=== PATIENT | female | born 1950 | race Caucasian/White ===

== ENCOUNTER → 2023-09-24 09:52 | Outpatient (REF) | payer OTHER, SELFPAY | LOC: REG 09:52 | PROVIDERS: ATTENDING PHYSICIAN Physician Assistant Medical | DX: M54.59 Other low back pain (principal) | CPT/HCPCS: 72110 ==

== ENCOUNTER → 2023-10-01 08:00 | Outpatient (REF) | payer OTHER, SELFPAY | LOC: WDC 08:00 | PROVIDERS: ATTENDING PHYSICIAN Family Medicine | DX: Z12.31 Encounter for screening mammogram for malignant neoplasm of breast (principal) | CPT/HCPCS: 77063; 77067 ==

== ENCOUNTER → 2023-11-02 07:45 | Outpatient (REF) | payer OTHER, SELFPAY | LOC: RAD 07:45 | PROVIDERS: ATTENDING PHYSICIAN Internal Medicine Gastroenterology; FAMILY PHYSICIAN Family Medicine | DX: R11.0 Nausea (principal) | CPT/HCPCS: 78264; A9541 ==

== ENCOUNTER 2023-12-10 22:32 | Inpatient (IN) | payer OTHER, SELFPAY ==
[2023-12-10 16:00] VITALS: BP 122/105; BMI 23.3
[2023-12-10 16:01] VITALS: BP 122/105
[2023-12-10 16:12] LABS: % Basophils 0.2 % (0-2); % Eosinophils 0.5 % (0-6); % Immature Granulocytes 0.2 % (0-0.5); % Lymphocytes 11.6 % (20.5-51.1); % Monocytes 6.4 % (1.7-9.3); % Neutrophils 81.1 % (42.2-75.2); Absolute Eosinophils 0.1 10^3/uL (0-0.7); Absolute Lymphocytes 1.1 10^3/uL (1.2-3.4); Absolute Monocytes 0.6 10^3/uL (0.1-0.6); Absolute Neutrophils 7.6 10^3/uL (1.4-6.5); Hemoglobin 12.9 g/dL (12.0-16.0); Mean Corp Hgb Conc. 35.8 g/dL (33.0-37.0); Mean Corpuscular Hgb 30.4 pg (27.0-31.0); Mean Corpuscular Volume 84.9 fL (81.0-99.0); Mean Platelet Volume 9.5 fL (7.4-10.4); Nucleated Red Blood Cells % 0 %; Platelet Count 242 10^3/uL (130-400); Red Blood Cell Count 4.24 10^6/uL (4.20-5.40); Red Cell Dist. Width 13.1 % (11.5-14.5); White Blood Cell Count 9.4 10^3/uL (4.8-10.8)
[2023-12-10 16:34] LABS: ALT (SGPT) 17 U/L (0-35); AST (SGOT) 30 U/L (14-36); Albumin 4.3 g/dl (3.5-5.0); Alkaline Phosphatase 89 U/L (38-126); Blood Urea Nitrogen 18 mg/dl (7-17); Carbon Dioxide 26 mmol/L (22-30); Chloride 98 mmol/L (98-107); Estimated Creatinine Clearance 52 ml/min; Glucose 122 mg/dl (70-99); Lipase 61 U/L (23-300); Potassium 3.9 mmol/L (3.5-5.1); Sodium 132 mmol/L (135-145); Total Bilirubin 0.7 mg/dl (0.2-1.3); Total Protein 6.6 g/dl (6.3-8.2); eGFR > 60.00
[2023-12-10 17:00] VITALS: BP 133/89
--- NOTE | 2023-12-10 17:31 | ED.GENMED ---
History of Present Illness
<Vijaya Nolen DO, Resident - Last Filed: 12/10/23 21:49>
General
Chief Complaint: Abdominal Pain
Source: patient and family
Time Seen by Provider: 12/10/23 17:22
History of Present Illness
History of Present Illness:
Pt is a 73 YO F with Hx of GERD and constipation with new onset abdominal pain and projectile vomiting. She reports that she felt SOB around 3 PM, felt epigastric pain, had looser stools and an episode of projectile vomiting. She has no recent sick
contacts or illnesses and reports no headaches, ongoing CP, SOB, numbness, tingling or repeat vomiting. Had a recent barium swallow study showing gastroparesis. She does confirm abdominal tenderness, nausea, epigastric pain/periumbilical pain and
loose stools without blood.
If applicable-neuro sx onset
Onset of symptoms known: Yes
Date of onset of symptoms: 12/10/23
Time of onset of symptoms: 15:00
Past History
<Vijaya Nolen DO, Resident - Last Filed: 12/10/23 21:49>
Past History
ED Past Medical History: Arrthythmia, HTN and Other (IBS)
ED Past Surgical History: None
Social History
Tobacco: Non-smoker
Alcohol: None
Drug: None
Personal:
Living: with family
Review of Systems
<Vijaya Nolen DO, Resident - Last Filed: 12/10/23 21:49>
Review of Systems
Constitutional: Reports no symptoms
EENT: Reports no symptoms
Respiratory: Reports no symptoms
ABD/GI: Reports abdominal pain, nausea, vomiting, diarrhea, pain and other (epigastric pain)
: Reports urgency
Phy Exam
<Vijaya Nolen DO, Resident - Last Filed: 12/10/23 21:49>
General Physical Exam
General Presentation: well appearing and no apparent distress
General age: appears stated age
General Skin: warm and dry
General Habitus: normal
General Mental: alert
General Hydration: appears well hydrated
Cardiovascular Exam
Cardiovascular Exam: regular rate/rhythm, no edema, no gallop, no JVD, no murmur and normal peripheral pulses
Pulmonary Exam
Pulmonary Exam: lungs clear, no respiratory distress, no rales, chest non tender, no crackles, no rhonchi, no stridor, no wheezing, no cough and other (some intermittent short breaths )
Gastrointestinal Exam
Gastrointestinal Exam: normal bowel sounds, soft, non distended and tender (middle upper quadrant tenderness)
Course
Janelllt;Vijaya Nolen DO, Resident - Last Filed: 12/10/23 21:49>
Orders/Labs/Results
Orders:
Orders
12/10/23 Dinner
NPO
Allow oral meds: No
Allow clear liquids: No
NPO with Ice Chips: No
12/10/23 16:05
Complete Blood Count/With Diff Urgent
Comprehensive Metabolic Panel Urgent
Lipase Urgent
12/10/23 18:13
Electrocardiogram (*1) Urgent
Reason for Study: Abdominal Pain
EKG- Treatment ONCE
12/10/23 18:15
Ondansetron Injectable [Zofran] 4 mg IV NOW STA
12/10/23 18:17
0.9% Sodium Chloride 1000 ml [Nss] 1,000 ml IV BOLUS
Pantoprazole [Protonix IV] 40 mg IV NOW STA
12/10/23 18:26
Troponin I Urgent
12/10/23 18:27
CT Abd/pelvis W Iv Cont Urgent
Comment:
Reason For Exam: periumbilical abdominal pain
12/10/23 18:38
0.9% Sodium Chloride 500 ml [Nss] 500 ml IV BOLUS
12/10/23 20:45
0.9% Sodium Chloride 1000 ml [Nss] 1,000 ml IV 100 mls/hr
12/10/23 22:03
Portable Chest Xray [CR Chest Portable - 1 View] Stat
Comment:
Reason For Exam: ng tube placement
Reason Study Needs to be Portable: Unable to Transport
12/10/23 22:10
Admit/Transfer Patient As Directed
Co-Sign Provider:
Level of Care: Inpatient admission
Assign to:: Medical/Surgical
Physician / Group: natalee khanna
Diagnosis: bowel obst
Reason for Hospitalization: bowel obst
Expected length of stay greater than two midnights?: Yes
ELOS- Estimated Length of Stay in days: 4
I certify the patient meets the requirements for IP care: Yes
Code Status As Directed
Resuscitation Status: Full Code
12/10/23 23:07
HYDROmorphone [Dilaudid] 0.25 mg IV Q3HPRN PRN
HYDROmorphone [Dilaudid] 0.5 mg IV Q4HPRN PRN
Ondansetron Injectable [Zofran] 4 mg IV Q6HPRN PRN
12/10/23 23:07
Consult Notification Routine
Specialty to Notify: Surgical
Consult Surgery [SURGICAL CONSULT] Routine
Consulting Provider: Hans Underwood
Was physician already notified: No
Reason for consult: bowel obst
Activity As Directed
Activity Level: As Tolerated
NG Tube [Gastrointestinal Tubes] As Directed
Type: [place] sump
To suction?: Yes
Type of suction: Low intermittent
Irrigate tube?: No
Vital Signs As Directed
Frequency: Per unit guidelines
Ot Eval And Treat Routine
Pt Eval And Treat Routine
Activity Level: As Tolerated
DX Deep Vein Thrombosis Video Routine
12/11/23 06:00
Cardiovascular Evaluation IN AM
Complete Blood Count/With Diff IN AM
Comprehensive Metabolic Panel IN AM
Abdomen Xray - 1 View [CR Abdomen - 1 View] IN AM
Comment:
Reason For Exam: bowel obst
12/11/23 08:00
Pantoprazole [Protonix IV] 40 mg IV DAILY
12/11/23 18:00
Enoxaparin Sodium [Lovenox] 40 mg SC QPM
12/12/23 06:00
Complete Blood Count/With Diff IN AM
Comprehensive Metabolic Panel IN AM
12/13/23 06:00
Complete Blood Count/With Diff IN AM
Comprehensive Metabolic Panel IN AM
Abnormal Lab Results
12/10/23
16:05
Hct 36.0 L %
(37.0-47.0)
Absolute Neuts (auto) 7.6 H 10^3/uL
(1.4-6.5)
Absolute Lymphs (auto) 1.1 L 10^3/uL
(1.2-3.4)
Neutrophils % 81.1 H %
(42.2-75.2)
Lymphocytes % 11.6 L %
(20.5-51.1)
Sodium 132 L mmol/L
(135-145)
BUN 18 H mg/dl
(7-17)
Glucose 122 H mg/dl
(70-99)
12/10/23 16:05
12/10/23 16:05
Vital Signs
Initial and Last Documented VS:
Initial Vital Signs
Temp Pulse Resp BP Pulse Ox
36.7 C 96 20 122/105 99
12/10/23 16:00 12/10/23 16:00 12/10/23 16:00 12/10/23 16:00 12/10/23 16:00
Last Documented Vital Signs
Temp Pulse Resp BP Pulse Ox
37.1 C 112 20 150/90 95
12/10/23 23:33 12/10/23 23:33 12/10/23 23:33 12/11/23 00:06 12/11/23 00:07
<Danilo Pak MD - Last Filed: 12/11/23 01:23>
Orders/Labs/Results
Orders:
Orders
12/10/23 Dinner
NPO
Allow oral meds: No
Allow clear liquids: No
NPO with Ice Chips: No
12/10/23 16:05
Complete Blood Count/With Diff Urgent
Comprehensive Metabolic Panel Urgent
Lipase Urgent
12/10/23 18:13
Electrocardiogram (*1) Urgent
Reason for Study: Abdominal Pain
EKG- Treatment ONCE
12/10/23 18:15
Ondansetron Injectable [Zofran] 4 mg IV NOW STA
12/10/23 18:17
0.9% Sodium Chloride 1000 ml [Nss] 1,000 ml IV BOLUS
Pantoprazole [Protonix IV] 40 mg IV NOW STA
12/10/23 18:26
Troponin I Urgent
12/10/23 18:27
CT Abd/pelvis W Iv Cont Urgent
Comment:
Reason For Exam: periumbilical abdominal pain
12/10/23 18:38
0.9% Sodium Chloride 500 ml [Nss] 500 ml IV BOLUS
12/10/23 20:45
0.9% Sodium Chloride 1000 ml [Nss] 1,000 ml IV 100 mls/hr
12/10/23 22:03
Portable Chest Xray [CR Chest Portable - 1 View] Stat
Comment:
Reason For Exam: ng tube placement
Reason Study Needs to be Portable: Unable to Transport
12/10/23 22:10
Admit/Transfer Patient As Directed
Co-Sign Provider:
Level of Care: Inpatient admission
Assign to:: Medical/Surgical
Physician / Group: natalee khanna
Diagnosis: bowel obst
Reason for Hospitalization: bowel obst
Expected length of stay greater than two midnights?: Yes
ELOS- Estimated Length of Stay in days: 4
I certify the patient meets the requirements for IP care: Yes
Code Status As Directed
Resuscitation Status: Full Code
12/10/23 23:07
HYDROmorphone [Dilaudid] 0.25 mg IV Q3HPRN PRN
HYDROmorphone [Dilaudid] 0.5 mg IV Q4HPRN PRN
Ondansetron Injectable [Zofran] 4 mg IV Q6HPRN PRN
12/10/23 23:07
Consult Notification Routine
Specialty to Notify: Surgical
Consult Surgery [SURGICAL CONSULT] Routine
Consulting Provider: Hans Underwood
Was physician already notified: No
Reason for consult: bowel obst
Activity As Directed
Activity Level: As Tolerated
NG Tube [Gastrointestinal Tubes] As Directed
Type: [place] sump
To suction?: Yes
Type of suction: Low intermittent
Irrigate tube?: No
Vital Signs As Directed
Frequency: Per unit guidelines
Ot Eval And Treat Routine
Pt Eval And Treat Routine
Activity Level: As Tolerated
DX Deep Vein Thrombosis Video Routine
12/11/23 06:00
Cardiovascular Evaluation IN AM
Complete Blood Count/With Diff IN AM
Comprehensive Metabolic Panel IN AM
Abdomen Xray - 1 View [CR Abdomen - 1 View] IN AM
Comment:
Reason For Exam: bowel obst
12/11/23 08:00
Pantoprazole [Protonix IV] 40 mg IV DAILY
12/11/23 18:00
Enoxaparin Sodium [Lovenox] 40 mg SC QPM
12/12/23 06:00
Complete Blood Count/With Diff IN AM
Comprehensive Metabolic Panel IN AM
12/13/23 06:00
Complete Blood Count/With Diff IN AM
Comprehensive Metabolic Panel IN AM
Abnormal Lab Results
12/10/23
16:05
Hct 36.0 L %
(37.0-47.0)
Absolute Neuts (auto) 7.6 H 10^3/uL
(1.4-6.5)
Absolute Lymphs (auto) 1.1 L 10^3/uL
(1.2-3.4)
Neutrophils % 81.1 H %
(42.2-75.2)
Lymphocytes % 11.6 L %
(20.5-51.1)
Sodium 132 L mmol/L
(135-145)
BUN 18 H mg/dl
(7-17)
Glucose 122 H mg/dl
(70-99)
12/10/23 16:05
12/10/23 16:05
Vital Signs
Initial and Last Documented VS:
Initial Vital Signs
Temp Pulse Resp BP Pulse Ox
36.7 C 96 20 122/105 99
12/10/23 16:00 12/10/23 16:00 12/10/23 16:00 12/10/23 16:00 12/10/23 16:00
Last Documented Vital Signs
Temp Pulse Resp BP Pulse Ox
37.1 C 112 20 150/90 95
12/10/23 23:33 12/10/23 23:33 12/10/23 23:33 12/11/23 00:06 12/11/23 00:07
<Vijaya Nolen DO, Resident - Last Filed: 12/10/23 21:49>
MDM/Problems Addressed
Differential Diagnosis Includes:
gastroparesis, small bowel obstruction, ileus
MDM/Problems Addressed:
Pt is a 73 YO F with Hx of GERD and constipation with new onset abdominal pain and projectile vomiting. She is stable. CT AP ordered for periumbilical pain. EKG normal. Zofran, IVF, and Protonix given for symptom management. CT AP showed moderate
developing small bowel obstruction vs ileus. She is currently stable but nauseous. Plan to admit to hospital for nasogastric decompression.
Chronic conditions affecting care:
Gastroparesis
Acute Exacerbation and/or Progression of Chronic Illness:
Gastroparesis
<Vijaya Nolen DO, Resident - Last Filed: 12/10/23 21:49>
*Radiology
Radiology exam reviewed: radiology read reviewed (CT AP showed developing moderate small bowel obstruction vs ileus)
*Pulse Oximetry
Patient hypoxic: no
*EKG
Interpreted by ED Provider?: Yes
EKG Intrepretation Date: 12/10/23
Interpretation: normal
Comparison EKG: no changes
Heart Rate: 97
Rate: normal
Rhythm: sinus
[place]: normal axis
Interval: normal interval
QRS Pattern: normal QRS
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 No new ischemia)
*Carpet Cutter Interpretation
Rate: tachycardiac
Interpretation: abnormal
Heart Rate: 112
Rhythm: sinus
*Critical Care Note
Total Time (30-74mins, 75-104mins- exclusive of procedures): Not Applicable
<Vijaya Nolen DO, Resident - Last Filed: 12/10/23 21:49>
Patient Management
Social determinants of health affecting care: Living situation and Strong social support
<Vijaya Nolen DO, Resident - Last Filed: 12/10/23 21:49>
Update Note
Update Note:
Patient vomited 1x in ED. Vomit had food particles and was an orange-y color.
ED Attending Note
<Vijaya Nolen DO, Resident - Last Filed: 12/10/23 21:49>
-
Portions of this chart may have been created with voice recognition software.� Occasional wrong word or��sound alike� substitutions may have occurred due to the inherent limitations of voice recognition software.
<Danilo Pak MD - Last Filed: 12/11/23 01:23>
ED Attending Note
Patient seen and examined by attending physician: Yes
I performed a history and physical exam of patient and discussed management with resident, I reviewed resident's note and agree with documented findings and plan of care.: Yes
ED Attending Note:
I have seen and evaluated the patient with a fiyf-st-ltya encounter. I have spoken to the resident and involved in the medical history, the physical exam, medical decision making.
Evaluation and management service: agree unless noted differently below.
Results interpretation: agree unless noted differently below.
Focused HPI: 73-year-old female with a past medical history of hypertension, atrial fibrillation who presents to the emergency room for evaluation of abdominal pain with nausea and vomiting. Patient reports that it started earlier this afternoon
and has been constant and worsening throughout the day. She reports nonbloody emesis. She denies any diarrhea in fact is chronically constipated. No fevers or chills. She denies any chest pain or shortness of breath. She has a prior history of
a tubal ligation and polyp resection in the uterus but no other significant intra-abdominal procedures. She does notably have a history of chronic nausea and vomiting and had a recent gastric emptying study that showed signs concerning for
gastroparesis.
Physical exam: Awake and alert, holding emesis bag. Vital signs significant for hypertension. Mucous membranes are somewhat dry. Her abdomen is soft, diffusely tender worse in the epigastric to periumbilical region. No CVA tenderness. No
cardiac rubs gallops or murmurs. Lungs clear to auscultation bilaterally.
Medical Decision Makin-year-old female presents for abdominal pain with nausea and vomiting for the past few hours. Exam as above. Will send labs including a CBC and a CMP, lipase. Will check EKG and troponin in an abundance of caution
although low suspicion that this is anginal equivalent. Will check CT abdomen pelvis. Reassess after the above.
CT abdomen pelvis shows signs concerning for small bowel obstruction. She does have distended stomach. Continues to have nausea and a few episodes of vomiting. Will place nasogastric tube. IV fluids in progress. Will admit to the hospitalist
for continued treatment of small bowel obstruction.
Discharge Plan
Departure
Patient Disposition: Admit
Date of Disposition: 12/10/23
Time of Disposition: 20:57
Admit to: Telemetry
Presentation/result/management discussed w/ accepting MD/DO: Hospitalist
Patient with high blood pressure during this ER visit?: No
Condition: Fair
Discharge Problem:
Small bowel obstruction
Interventions
Interventions:
*Risk Screen - Suicide Last Done: 12/10/23 23:46
*General Assessment Last Done: 12/10/23 16:04
*Neglect/Abuse Screening Last Done: 12/10/23 16:04
ED- Fall Risk Assessment Last Done: 12/10/23 22:59
*ED COVID-19 Vaccine History Last Done: 12/10/23 16:04
*Nursing Disposition Last Done: 12/10/23 22:59
OO-Rdpjvs-Qeljkqweop Assessment Last Done: 12/10/23 16:19
Discharge Date and Time
Discharge Date/Time: 12/10/23 23:00
[2023-12-10 18:09] VITALS: BP 122/73
[2023-12-10] MEDS: ZOFRAN 4 MG IV (18:35)
[2023-12-10] MEDS: PROTONIX IV 40 MG IV (18:35)
[2023-12-10] MEDS: NSS 500 IV (18:38)
[2023-12-10 18:58] LABS: Troponin I 0.016 ng/ml
[2023-12-10 19:00] VITALS: BP 111/88
--- NOTE | 2023-12-10 21:45 | HPS.HSE ---
Addendum entered and electronically signed by Doni Vasquez DO 12/10/23 23:51:
Patient seen and examined independently. Agree with findings and plan as set forth by PJ Griffiths.
Patient is a 73y F with PMH significant for GERD / hiatal hernia, hypertension and recently diagnosed mild gastroparesis who presents to ED complaining of abdominal discomfort and N/V. Patient states that she has had intermittent issues with abd
pain and N/V for the past several months. Patient reported pain near the umbilicus today associated with several episodes of bilious N/V. On evaluation in the ED, CT scan shows dilated gastric body and small bowel c/w obstruction or ileus.
Patient states that she has had normal bowel movements recently.
Ass:
SBO v Ileus
Mild Gastroparesis
GERD / Hiatal Hernia
Large Gallstone (chronic)
Benign Hypertension
Osteoporosis
Plan:
Admit for further evaluation and treatment.
NG placed in the ED for decompression with clinical improvement appreciated.
Follow for clinical changes.
Surgery evaluation for additional recommendations.
Large gallstone appreciated - patient notes that this is a known finding.
Supportive care with pain control, antiemetics, etc.
Original Note:
Family Physician
-
Family Physician: Rolando Howell
Chief Complaint
-
Abdominal pain with nausea and vomiting
History of Present Illness
73-year-old female from home by EMS complaining of nausea, vomiting with abdominal pain to the left and right of her umbilicus. She reports she vomited a large amount of her food. She had a turkey sandwich with tomato for lunch today. Also
vomited once in the ER. She states she has had abdominal pain for years with known history of gallstone. She had a recent gastric emptying study for which she was told she failed. She has an upcoming appointment with Dr. Gregorio February 25 at
[facility] for gastroparesis evaluation. She denies fever, chills, chest pain, palpitations, shortness breath, cough, diarrhea, urinary symptoms. She does report issues with constipation did have a normal bowel movement yesterday she states. She has
been taking MiraLAX, senna and align daily with last dose yesterday 12/09/2023. Other past medical history includes HTN, PVCs, history of old Linq device, GERD, osteoporosis, hyperlipidemia, hiatal hernia, right eye wet macular degeneration, vitamin
D deficiency, gallstones.
Medical History
Past Medical History
Past Medical History: Reports Other
Additional Past Medical History:
GERD
Possible gastroparesis on recent gastric emptying study 11/02/2023
Chronic hiatal hernia
HTN with PVCs
osteoporosis
hyperlipidemia
right eye wet macular degeneration
vitamin D deficiency
gallstones
Past Surgical History: Reports Other
Additional Past Surgical History:
Tubal ligation
Tonsillectomy
Social History
Tobacco: Non-smoker
Alcohol: None
Drug: None
Personal:
Living: With Family
Employment: Retired
Family History
Family History: Other (Father ruptured aneurysm abdomen mother post hip fracture)
Allergies / Home Medications
Allergies reflects when Allergies were last updated in [facility].
Home Medications with original date entered in [facility]
Allergy/Medication List:
Allergies
Allergy/AdvReac Type Severity Reaction Status Date / Time
apixaban [From Eliquis] Allergy Unknown Anaphylaxis Verified 09/12/22 13:14
cefdinir Allergy Unknown Verified 09/12/22 13:14
cephalexin Allergy Vomiting Verified 09/12/22 13:14
clarithromycin Allergy twin Verified 09/12/22 13:14
sister had
anaphylaxis
dabigatran etexilate Allergy Hives and Verified 09/12/22 13:14
[From Pradaxa] itching
doxycycline Allergy Unknown Verified 09/12/22 13:14
erythromycin base Allergy twin Verified 09/12/22 13:14
sister had
anaphyaxis
Penicillins Allergy Unknown Verified 09/12/22 13:14
rivaroxaban [From Xarelto] Allergy Hives and Verified 09/12/22 13:14
itching
Sulfa (Sulfonamide Allergy Vomiting Verified 09/12/22 13:14
Antibiotics)
Home Medications
ycarfsog-iwkn-zris 8 mg-folic 400 mcg-K 50 mcg-lutein 300 mcg tablet (Multivitamin Women 50 Plus) 1 ea PO DAILY 02/23/19
alendronate 70 mg tablet 70 mg PO WE 03/14/19
metoprolol succinate 50 mg tablet,extended release 24 hr 50 mg PO QPM 03/14/19
vit C 250 mg-vit E 90 mg-zinc 40 mg-copper 1 uz-yqwwkv-pjjjmk capsule (PreserVision AREDS-2) 1 ea PO BID 03/14/19
calcium carbonate 500 mg-vitamin D3 3.125 mcg (125 unit) tablet 1 ea PO BID 09/09/21
Brandy Extra Strength 1 tab PO DAILYPRN PRN probiotic 12/10/23
Cimerli 1 dose intraocular .Q7WEEK 12/10/23
aspirin 81 mg tablet,delayed release 81 mg PO DAILY 12/10/23
cholecalciferol (vitamin D3) 50 mcg (2,000 unit) tablet 50 mcg PO DAILY 12/10/23
famotidine 40 mg tablet 40 mg PO QPM 12/10/23
metoprolol succinate 25 mg tablet,extended release 24 hr 25 mg PO QPM 12/10/23
omega 6-qmi-ssp-fish oil 1,000 mg (120 mg-180 mg) capsule (Fish Oil) 1 cap PO BID 12/10/23
omeprazole 40 mg capsule,delayed release 40 mg PO DAILY 12/10/23
polyethylene glycol 3350 17 gram oral powder packet (Miralax) 8.5 g PO DAILYPRN PRN constipation 12/10/23
sennosides 8.6 mg tablet (senna) 8.6 mg PO DAILYPRN PRN constipation 12/10/23
Review of Systems
-
History Source: Patient and Family ( at bedside)
A 12 point ROS was completed and negative except as noted: Yes
Constitutional: Denies Fever or Fatigue
EENT: Denies Sore Throat or Runny Nose
Respiratory: Denies Cough or Trouble Breathing
Cardiac: Denies Chest Pain, Diaphoresis, Palpitations or Syncope
Abdomen/GI: Reports Abdominal Pain (To left and right of umbilicus), Nausea and Vomiting; Denies Diarrhea or Constipated
: Denies Dysuria, Frequency, Flank Pain, Incontinence, Difficulty Voiding or Urgency
Musculoskeletal: Denies Joint Pain or Edema
Skin: Denies Itching or Rash
Neurological: Denies Dizzy, Headache or Weakness
Endocrine: Reports No Symptoms
Hematologic/Lymphatic: Reports No Symptoms
Psych: Reports Calm
Physical Exam
Vital Signs
Vital Signs
Temp Pulse Resp BP Pulse Ox
98.1 F 105 21 111/88 96
12/10/23 16:00 12/10/23 20:30 12/10/23 20:30 12/10/23 19:00 12/10/23 20:30
Physical Exam
General: Conversant; No Fever or Chills
HEENT: NormoCephalic, Anicteric, Moist mucous membranes, PERRLA, [place] Conjunctivae and No Ptosis
Respiratory: Clear; No Wheezes, Rales or Rhonchi
Cardiac: S1/S2 and Regular Rhythm; No Murmur, Rub, Gallop or Peripheral Edema
Breast: Deferred by me
GI: Soft, Non Distended, Normal Bowel Sounds and Tender (To left and right of umbilicus)
Rectal: Deferred by Provider
Genito-urinary: Deferred by me
Musculoskeletal: No Clubbing, No Cyanosis and No Edema
Skin: Warm and Dry; No Rash or Jaundice
Neuro: AO x 3, No Motor Deficits, Nonfocal/grossly intact, Cranial Nerves Intact and No Sensory Deficits; No DTR's Intact & Symmetrical, Slurred Speech, Facial Droop or Tremors
Psych: Calm
Laboratory Results
-
12/10/23 16:05
12/10/23 16:05
Laboratory Results
Total Bilirubin 0.7 mg/dl (0.2-1.3) 12/10/23 16:05
AST 30 U/L (14-36) 12/10/23 16:05
ALT 17 U/L (0-35) 12/10/23 16:05
Alkaline Phosphatase 89 U/L (38-126) 12/10/23 16:05
Troponin I 0.016 ng/ml 12/10/23 18:26
Lipase 61 U/L (23-300) 12/10/23 16:05
Impression/Plan
-
Impression/plan:
Admit to MedSurg
#Abdominal pain with nausea vomiting secondary to small bowel obstruction
-N.p.o.
-Consult surgery
-IV NSS
-IV Zofran as needed
-IV PPI
-NG tube to low suction
CT abdomen pelvis with IV contrast:
1. Moderate developing small bowel obstruction versus small bowel ileus
2. Single large gallstone
3. Mild diverticulosis
4. Too small to characterize hypodense hepatic lesions likely small cyst or hemangiomas
EKG: NSR 97 bpm stable T wave inversions lead III aVF from prior 2019 appearance of lead artifact in anterior leads
#Recent borderline gastroparesis
Gastric emptying study completed on 11/02/2023 with borderline evidence of gastroparesis/delayed initial gastric emptying at 141 minutes with normal time being 110 minutes or less
-Patient has appointment [address] Solomon Gregorio motility specialist at [facility]
#GERD
-Will give IV PPI in place of p.o.
#Known history of gallstones
#Hiatal hernia Hx
#History of EGD 09/12/2022:small hiatal hernia dilated to 20 mm with a TTS balloon
Entire esophagus normal
#HTN with PVCs
#History of old Linq device
Hold metoprolol succinate 75 mg every afternoon
#Osteoporosis
Hold alendronate 70 mg on Wednesdays
Hyperlipidemia
-Hold fish oil
Right eye wet macular degeneration
-Patient gets Cimerli injection to right eye every 7 weeks last injection was 11/09/2023
Vitamin D deficiency
-Hold vitamin D supplementation
DVT prophylaxis
Subcu Lovenox
Full code
[2023-12-10] MEDS: NSS 1000 IV (22:16)
--- NOTE | 2023-12-10 23:05 | PTCARENOTE ---
Pt arrived to 2S via stretcher from ED. Pt was able to ambulate to bed. VSS. NG in L nare connected to low intermittent suction. IVF infusing at 100 ml/hr. Full head to toe assessment complete. Pt has no complaints at this time. Bed in lowest
position and locked. Call chávez within reach.
[2023-12-10 23:33] VITALS: BP 154/116; BMI 20.9
[2023-12-10 23:55] VITALS: BMI 20.9
[2023-12-11 00:06] VITALS: BP 150/90
[2023-12-11] MEDS: DILAUDID 0.5 MG IV (02:50)
[2023-12-11] MEDS: LOPRESSOR 5 MG IV ×3 (02:53→16:46)
[2023-12-11 03:02] VITALS: BP 163/85
[2023-12-11] MEDS: ZOFRAN 4 MG IV ×2 (03:06→12:07)
[2023-12-11 05:50] LABS: % Basophils 0.3 % (0-2); % Eosinophils 0.4 % (0-6); % Immature Granulocytes 0.4 % (0-0.5); % Monocytes 8.2 % (1.7-9.3); % Neutrophils 82.7 % (42.2-75.2); Absolute Lymphocytes 0.9 10^3/uL (1.2-3.4); Absolute Monocytes 0.9 10^3/uL (0.1-0.6); Absolute Neutrophils 8.7 10^3/uL (1.4-6.5); Hematocrit 36.5 % (37.0-47.0); Hemoglobin 12.8 g/dL (12.0-16.0); Mean Corp Hgb Conc. 35.1 g/dL (33.0-37.0); Mean Corpuscular Hgb 29.9 pg (27.0-31.0); Mean Corpuscular Volume 85.3 fL (81.0-99.0); Mean Platelet Volume 9.9 fL (7.4-10.4); Nucleated Red Blood Cells % 0 %; Platelet Count 262 10^3/uL (130-400); Red Blood Cell Count 4.28 10^6/uL (4.20-5.40); Red Cell Dist. Width 13.3 % (11.5-14.5); White Blood Cell Count 10.6 10^3/uL (4.8-10.8)
[2023-12-11] MEDS: LOPRESSOR IV (05:55)
[2023-12-11 06:13] LABS: ALT (SGPT) 16 U/L (0-35); AST (SGOT) 29 U/L (14-36); Alkaline Phosphatase 78 U/L (38-126); Blood Urea Nitrogen 14 mg/dl (7-17); Calcium 9.8 mg/dl (8.4-10.2); Carbon Dioxide 21 mmol/L (22-30); Chloride 103 mmol/L (98-107); Estimated Creatinine Clearance 55 ml/min; Glucose 119 mg/dl (70-99); HDL Cholesterol 57 mg/dl; LDL Cholesterol, Calculated 101 mg/dl; Potassium 3.9 mmol/L (3.5-5.1); Sodium 136 mmol/L (135-145); Total Cholesterol 169 mg/dl (50-199); Total Protein 6.3 g/dl (6.3-8.2); Triglyceride 56 mg/dl (10-149); Very Low Density Lipoprotein 11 mg/dl (0-30); eGFR > 60.00
[2023-12-11 07:01] LABS: Hepatitis C Antibody Negative (Negative)
[2023-12-11 07:20] VITALS: BP 155/89
--- NOTE | 2023-12-11 07:59 | PTCARENOTE ---
consult sent to Dr. Underwood
--- NOTE | 2023-12-11 09:22 | W.PN.GS2 ---
Addendum entered and electronically signed by Hans Underwood MD 12/11/23 15:39:
Note should be deleted. Please see separate consultation note for details.
Original Note:
Today's Communication / Plan
-
*
Assessment / Plan
-
ASSESSMENT:
73 yo Female pt with relevant SHx of previous Cyst removal and fallopian tube ligation +30 years ago and a PMH of gastroparesis presenting to the ED with possible SBO VS Ileus.
PLAN:
NPO
Continue NG-Tube
Follow-through Contrast ABD Study
Subjective Data
-
Date of Service: December 11, 2023
Pt seen and examine this morning with attending physician.
No acute O/N events
Feeling better/No complains this morning
Reports improvement of previous abdominal pain and distention
Denies any Nausea or vomiting
Passing flatus/No abdominal movement at this time
Objective Data
-
Intake and Output
12/10/23 12/11/23 12/12/23
06:59 06:59 06:59
Intake Total 800 / 800
Output Total 200 / 200
Balance 600 / 600
Intake:
IV fluids (Total) 800 / 800
Output:
Gastrointestinal tube output ( 200 / 200
Total)
[place] Sump 200 / 200
Other:
Number of approximated MODERATE 1
amounts of urine
Vital Signs
Temp Pulse Resp BP Pulse Ox
36.9 C 87 17 155/89 99
12/11/23 07:20 12/11/23 07:20 12/11/23 07:20 12/11/23 07:20 12/11/23 07:20
Lab Results
12/11/23 04:49
12/11/23 04:49
Calcium 9.8 mg/dl (8.4-10.2) 12/11/23 04:49
Total Bilirubin 1.0 mg/dl (0.2-1.3) 12/11/23 04:49
AST 29 U/L (14-36) 12/11/23 04:49
ALT 16 U/L (0-35) 12/11/23 04:49
Alkaline Phosphatase 78 U/L (38-126) 12/11/23 04:49
Total Protein 6.3 g/dl (6.3-8.2) 12/11/23 04:49
Albumin 4.0 g/dl (3.5-5.0) 12/11/23 04:49
Physical Exam
-
VITALS: Stable
PE:
NAD / AAOx3
ABDOMINAL: Soft, non-distended, No TTP, rigidity, rebound or guarding
NG-Tube in Place - Draining Brownish fluid /~ 100cc this morning
[2023-12-11 09:39] VITALS: BP 157/97; PULSE 91
--- NOTE | 2023-12-11 09:48 | PTOTSP ---
pt currently demonstrates ability to complete simple ADLs, functional transfers, ambulation with no assistance. no acute OT needs identified at this time, will sign off.
[2023-12-11] MEDS: NSS 1000 IV ×2 (09:49→17:41)
[2023-12-11] MEDS: NSS (PRESERVATIVE FREE) 10 ML IV (09:52)
[2023-12-11] MEDS: PROTONIX IV 40 MG IV (09:52)
--- NOTE | 2023-12-11 10:48 | W.PN.HOSP.TC ---
Today's Communication/Plan
-
see bold
Assessment / Plan
Assessment / Plan
Gen: NAD, AAOx3.
Eyes: EOMI, PERRLA, no scleral icterus.
Neck: supple.
CV: RRR, +S1/S2, no m/r/g.
Resp: CTAB, no rales, wheezes, or rhonchi.
Abd: hypoactive BS, soft, NT to light palpation, ND
Skin: No rashes.
Neuro: CN 2-12 intact, non-focal.
Psych: Normal mood and affect.
CT A/P 12/10/23: Findings suggesting moderate developing small bowel obstruction versus small bowel ileus. Too small to characterize hypodense hepatic lesions likely small cysts or hemangiomas. Single large gallstone. Mild diverticulosis.
Abd Xray 12/11/23: Paucity of intestinal bowel gas. Bowel gas pattern nonobstructive.
Possible, developing SBO:
-surgery following
-NGT in place to suction
-NPO/IVFs
-note, h/o gastroparesis
Other problems:
GERD: cont PPI
h/o gallstones
h/o hiatal hernia
Essential HTN: IV BB PRN
Multiple family members updated at bedside.
FULL/Lovenox
Anticipated Discharge: > 48 hours
Subjective/Interval History
-
Date of Service: December 11, 2023
Nausea now. BM yesterday. No flatus or BM today.
Objective Data
-
Labs:
Laboratory Results
12/11/23
04:49
WBC 10.6
Hgb 12.8
Hct 36.5 L
Plt Count 262
Sodium 136
Potassium 3.9
Chloride 103
Carbon Dioxide 21 L
BUN 14
Creatinine 0.7
Glucose 119 H
Calcium 9.8
Total Bilirubin 1.0
AST 29
ALT 16
Alkaline Phosphatase 78
Vital Signs:
Vital Signs
Temp Pulse Resp BP Pulse Ox
98.5 F 87 17 155/89 96
12/11/23 07:20 12/11/23 07:20 12/11/23 07:20 12/11/23 07:20 12/11/23 09:00
I&O
12/10/23 12/11/23 12/12/23
06:59 06:59 06:59
Intake Total 800 / 800
Output Total 200 / 200
Balance 600 / 600
--- NOTE | 2023-12-11 10:58 | CON.GS ---
Addendum entered and electronically signed by Hans Underwood MD 12/11/23 15:43:
Patient seen and examined.
Ms. Diaz is a 73 yo female with a h/o small hiatal hernia s/p Botox injection in 2021 & 2022, tubal ligation and recently diagnosed mild gastroparesis following extensive GI work up as an outpatient for chronic dyspepsia with constipation who
presents with worsening abdominal pain over the past 2 months with nausea and vomiting beginning yesterday. She reports that she was passing daily BM's up until yesterday. She has had no passage of flatus for approx 24 hours. An NGT was placed in
the ED with significant relief of symptoms.
Gen: NAD
HEENT: gastric/brown contents
Abd: soft, NT, mildly distended (mild), non-peritoneal
Patient is a 73 yo F with a h/o small hiatal hernia and chronic GERD with recent dx of mild gastroparesis presenting with intermittent abdominal pain over the last 2 months which worsened yesterday with onset of nausea and vomiting. CT imaging w/o
PO contrast with concern for ileus vs SBO (adhesive) without evidence of bowel threat or compromise. Symptomatic relief with NGT placement. AFVSS.
Plan:
Keep NPO with NGT to LIWS
IVF while NPO
May need PO contrast study if does not continue to improve with decompression
No plans for emergent surgery at this time
Original Note:
Consultation
-
Date/Time Consultation Requested: 12/10/23 0804
Requesting Provider: [place]
Reason for Consultation: bowel obst
Medical History
-
Chief Complaint: Abdominal pain
History of Present Illness:
Ms Diaz is a 73 yo female with a h/o small hiatal hernia s/p botox injection in 2021 & 2022, tubal ligation and recently diagnosed mild gastroparesis following extensive GI work up as an outpatient for chronic dyspepsia with constipation who
presents with worsening abdominal pain over the past 2 months with nausea and vomiting beginning yesterday. She reports that she was passing daily BM's up until yesterday. She has had no passage of flatus for approx 24 hours. An NGT was placed in
the ED with significant relief of symptoms.
Past Medical History
Past Medical History: GERD, HTN and Other (?gastroparesis, hiatal hernia, right eye wet macular degeneration, vitamin D deficiency, lg gallstone)
Past Surgical History: Gynecological (tubal ligation) and Tonsilectomy
Social History
Tobacco: Non-Smoker
Alcohol: None
Personal:
Living: With Family
Family History
Family History: Reviewed & Not Pertinent
Allergies / Home Medications
Allergy/AdvReac Type Severity Reaction Status Date / Time
apixaban [From Eliquis] Allergy Unknown Anaphylaxis Verified 09/12/22 13:14
cefdinir Allergy Unknown Verified 09/12/22 13:14
cephalexin Allergy Vomiting Verified 09/12/22 13:14
clarithromycin Allergy twin Verified 09/12/22 13:14
sister had
anaphylaxis
dabigatran etexilate Allergy Hives and Verified 09/12/22 13:14
[From Pradaxa] itching
doxycycline Allergy Unknown Verified 09/12/22 13:14
erythromycin base Allergy twin Verified 09/12/22 13:14
sister had
anaphyaxis
Penicillins Allergy Unknown Verified 09/12/22 13:14
rivaroxaban [From Xarelto] Allergy Hives and Verified 09/12/22 13:14
itching
Sulfa (Sulfonamide Allergy Vomiting Verified 09/12/22 13:14
Antibiotics)
�Medication �Instructions �Recorded �Confirmed �Type
[id number] 8 mg-folic 400 1 ea PO DAILY Supplement 02/23/19 12/10/23 History
mcg-K 50 mcg-lutein 300 mcg tablet
(Multivitamin Women 50 Plus)
alendronate 70 mg tablet 70 mg PO WE 03/14/19 12/10/23 History
metoprolol succinate 50 mg 50 mg PO QPM Heart 03/14/19 12/10/23 History
tablet,extended release 24 hr Disease/Condition
vit C 250 mg-vit E 90 mg-zinc 40 1 ea PO BID Supplement 03/14/19 12/10/23 History
mg-copper 1 [id number]
capsule (PreserVision AREDS-2)
calcium carbonate 500 mg-vitamin 1 ea PO BID Supplement 09/09/21 12/10/23 History
D3 3.125 mcg (125 unit) tablet
[place] Extra Strength 1 tab PO DAILYPRN PRN probiotic 12/10/23 12/10/23 History
Cimerli 1 dose intraocular .Q7WEEK 12/10/23 12/10/23 History
aspirin 81 mg tablet,delayed 81 mg PO DAILY Blood Clot 12/10/23 12/10/23 History
release Prevention/Tx
cholecalciferol (vitamin D3) 50 50 mcg PO DAILY Supplement 12/10/23 12/10/23 History
mcg (2,000 unit) tablet
famotidine 40 mg tablet 40 mg PO QPM Gastrointestinal Issue 12/10/23 12/10/23 History
metoprolol succinate 25 mg 25 mg PO QPM 12/10/23 12/10/23 History
tablet,extended release 24 hr
omega 3-kyd-jht-fish oil 1,000 mg 1 cap PO BID Supplement 12/10/23 12/10/23 History
(120 mg-180 mg) capsule (Fish Oil)
omeprazole 40 mg capsule,delayed 40 mg PO DAILY Gastrointestinal 12/10/23 12/10/23 History
release Issue
polyethylene glycol 3350 17 gram 8.5 g PO DAILYPRN PRN constipation 12/10/23 12/10/23 History
oral powder packet (Miralax)
sennosides 8.6 mg tablet (senna) 8.6 mg PO DAILYPRN PRN constipation 12/10/23 12/10/23 History
Review of Systems
-
History Source: Patient and Family
All other systems: Negative unless noted
A 10 point review of systems was completed, and was negative except as per HPI.
Physical Exam
Vital Signs
Temp Pulse Resp BP Pulse Ox
98.5 F 87 17 155/89 96
12/11/23 07:20 12/11/23 07:20 12/11/23 07:20 12/11/23 07:20 12/11/23 09:00
12/10/23 12/11/23 12/12/23
06:59 06:59 06:59
Actual Weight 50.15 kg
Body Mass Index (BMI) 20.9
Lab Results
12/11/23 04:49
12/11/23 04:49
WBC 10.6 10^3/uL (4.8-10.8) 12/11/23 04:49
Hgb 12.8 g/dL (12.0-16.0) 12/11/23 04:49
Hct 36.5 % (37.0-47.0) L 12/11/23 04:49
Plt Count 262 10^3/uL (130-400) 12/11/23 04:49
Abs Immat Gran (auto) 0.0 10^3/uL (0-0.05) 12/11/23 04:49
Neutrophils % 82.7 % (42.2-75.2) H 12/11/23 04:49
Physical Exam
General: Well Developed and Well Nourished
HEENT: Moist Mucous Membranes
Respiratory: Non Labored Respirations
GI: Soft, Non Tender, Distended (mild) and Other (NGT with gastric/brown contents)
Skin: Warm
Neuro: Awake, Alert and AO x 3
Psych: Calm
Data Reviewed
-
CT Scan: Image Personally Visualized and interpreted, Report Reviewed by me, Discussed with Physician, Discussed with Patient and Discussed with Family
Labs: Labs Reviewed by me, Discussed with Physician, Discussed with Patient and Discussed with Family
Old Records: Reviewed
Assessment / Plan
-
Assessment:
73 yo female with a h/o small hiatal hernia and chronic GERD with recent dx of mild gastroparesis presenting with intermittent abdominal pain over the last 2 months which worsened yesterday with onset of nausea and vomiting. CT imaging w/o PO
contrast with concern for ileus vs SBO (adhesive) without evidence of bowel threat or compromise. Symptomatic relief with NGT placement. AFVSS.
Plan:
Keep NPO with NGT to LIWS
IVF while NPO
May need PO contrast study if does not continue to improve with decompression
No plans for emergent surgery at this time
[2023-12-11 11:35] VITALS: BP 160/91
[2023-12-11] MEDS: OFIRMEV 100 IV (16:39)
[2023-12-11] MEDS: COMPAZINE 10 MG IV (16:41)
--- NOTE | 2023-12-11 19:51 | PTCARENOTE ---
pt refused Lovenox c/c she stated when she took a trip to [place] a couple yrs ago and the doctor put her on either Xarelto /Eliquis she had a reaction to it so they placed her on either Xarelto /Eliquis and she a reaction to that. So she refuses
blood thinners. 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
[2023-12-11] MEDS: TORADOL 15 MG IV (20:28)
[2023-12-11 23:24] VITALS: BP 147/82
[2023-12-12] VITALS (7 sets, daily range): BP systolic 143–176; BP diastolic 76–103
[2023-12-12] MEDS: LOPRESSOR 5 MG IV ×5 (00:10→23:03)
[2023-12-12] MEDS: NSS 1000 IV ×2 (03:45→15:51)
--- NOTE | 2023-12-12 08:13 | W.PN.HOSP.TC ---
Today's Communication/Plan
-
see bold
Assessment / Plan
Assessment / Plan
Gen: NAD, awake and alert
Eyes: EOMI, PERRLA, no scleral icterus.
Neck: supple.
CV: remains RRR, +S1/S2, no m/r/g.
Resp: CTAB, no rales, wheezes, or rhonchi.
Abd: +BS, soft, NT to light palpation, ND
Skin: No rashes.
Neuro: CN 2-12 intact, non-focal.
Psych: Normal mood and affect.
CT A/P 12/10/23: Findings suggesting moderate developing small bowel obstruction versus small bowel ileus. Too small to characterize hypodense hepatic lesions likely small cysts or hemangiomas. Single large gallstone. Mild diverticulosis.
Abd Xray 12/11/23: Paucity of intestinal bowel gas. Bowel gas pattern nonobstructive.
Possible, developing SBO:
-surgery following
-NGT in place to suction
-NPO/IVFs
-note, h/o gastroparesis
Other problems:
Hypokalemia: IV K
GERD: cont PPI
h/o gallstones
h/o hiatal hernia
Essential HTN: IV BB PRN
Multiple family members updated at bedside.
FULL/Lovenox
Anticipated Discharge: 24 - 48 hours
Subjective/Interval History
-
Date of Service: December 12, 2023
Patient had a bowel movement this morning which was loose. No new complaints.
Objective Data
-
Labs:
Laboratory Results
12/12/23
06:00
WBC Pending
Hgb Pending
Hct Pending
Plt Count Pending
Sodium Pending
Potassium Pending
Chloride Pending
Carbon Dioxide Pending
BUN Pending
Creatinine Pending
Glucose Pending
Calcium Pending
Total Bilirubin Pending
AST Pending
ALT Pending
Alkaline Phosphatase Pending
Vital Signs:
Vital Signs
Temp Pulse Resp BP Pulse Ox
98.6 F 84 16 143/76 95
12/12/23 07:15 12/12/23 07:15 12/12/23 07:15 12/12/23 07:15 12/12/23 07:15
I&O
12/11/23 12/12/23 12/13/23
06:59 06:59 06:59
Intake Total 800 / 800 2800 / 2800
Output Total 200 / 200 100 / 100
Balance 600 / 600 2700 / 2700
[2023-12-12] MEDS: PROTONIX IV 40 MG IV (08:20)
[2023-12-12] MEDS: NSS (PRESERVATIVE FREE) 10 ML IV (08:20)
[2023-12-12 09:48] LABS: % Basophils 0.2 % (0-2); % Eosinophils 0.9 % (0-6); % Immature Granulocytes 0.2 % (0-0.5); % Monocytes 6.3 % (1.7-9.3); % Neutrophils 84.4 % (42.2-75.2); Absolute Eosinophils 0.1 10^3/uL (0-0.7); Absolute Lymphocytes 0.8 10^3/uL (1.2-3.4); Absolute Monocytes 0.6 10^3/uL (0.1-0.6); Absolute Neutrophils 7.9 10^3/uL (1.4-6.5); Hematocrit 36.7 % (37.0-47.0); Hemoglobin 12.9 g/dL (12.0-16.0); Mean Corp Hgb Conc. 35.1 g/dL (33.0-37.0); Mean Corpuscular Hgb 30.7 pg (27.0-31.0); Mean Corpuscular Volume 87.4 fL (81.0-99.0); Nucleated Red Blood Cells % 0 %; Platelet Count 245 10^3/uL (130-400); Red Cell Dist. Width 13.5 % (11.5-14.5); White Blood Cell Count 9.4 10^3/uL (4.8-10.8)
[2023-12-12 10:08] LABS: ALT (SGPT) 16 U/L (0-35); AST (SGOT) 32 U/L (14-36); Albumin 3.9 g/dl (3.5-5.0); Alkaline Phosphatase 83 U/L (38-126); Blood Urea Nitrogen 12 mg/dl (7-17); Calcium 8.9 mg/dl (8.4-10.2); Carbon Dioxide 23 mmol/L (22-30); Chloride 106 mmol/L (98-107); Estimated Creatinine Clearance 64 ml/min; Glucose 96 mg/dl (70-99); Potassium 3.4 mmol/L (3.5-5.1); Sodium 138 mmol/L (135-145); Total Bilirubin 1.3 mg/dl (0.2-1.3); Total Protein 6.1 g/dl (6.3-8.2); eGFR > 60.00
--- NOTE | 2023-12-12 10:39 | W.PN.GS2 ---
Today's Communication / Plan
-
*
Assessment / Plan
-
ASSESSMENT:
73 yo Female pt with relevant SHx of previous abdominal fibroids removal and fallopian tube ligation +30 years ago and gastroparesis who presented to the ED with possible SBOp VS Ileus.
PLAN:
NG-Tube Clamp Trial / F/U PM
Advance to Clear liquids diet if tolerating well
Anticipate need for low residue diet to assist with gastric-emptying upon D/C
Subjective Data
-
Date of Service: December 12, 2023
Pt seen and evaluated this morning.
No acute O/N events
Feeling better/No complains this morning
Denies any N/V
Passing flatus
+ BM
Pt stated her NG-Tube got Off-Suction this morning on her way to the rest room
Objective Data
-
Intake and Output
12/11/23 12/12/23 12/13/23
06:59 06:59 06:59
Intake Total 800 / 800 2800 / 2800
Output Total 200 / 200 100 / 100
Balance 600 / 600 2700 / 2700
Intake:
IV fluids (Total) 800 / 800 2400 / 2400
IV piggybacks 100 / 100
Amount instilled into GI Tube ( 300 / 300
Total)
[place] Sump 300 / 300
Output:
Gastrointestinal tube output ( 200 / 200 100 / 100
Total)
[place] Sump 200 / 200 100 / 100
Other:
Number of approximated SMALL 1
amounts of urine
Number of approximated MODERATE 2
amounts of urine
Number of unmeasured liquid
stools
Rectum 3
Vital Signs
Temp Pulse Resp BP Pulse Ox
37.0 C 84 16 143/76 95
12/12/23 07:15 12/12/23 07:15 12/12/23 07:15 12/12/23 07:15 12/12/23 07:15
Lab Results
12/12/23 09:38
Calcium 8.9 mg/dl (8.4-10.2) 12/12/23 09:38
Total Bilirubin 1.3 mg/dl (0.2-1.3) 12/12/23 09:38
AST 32 U/L (14-36) 12/12/23 09:38
ALT 16 U/L (0-35) 12/12/23 09:38
Alkaline Phosphatase 83 U/L (38-126) 12/12/23 09:38
Total Protein 6.1 g/dl (6.3-8.2) L 12/12/23 09:38
Albumin 3.9 g/dl (3.5-5.0) 12/12/23 09:38
Physical Exam
-
VITALS: Stable
PE:
Comfortably sitting on chair this morning
In NAD
AAOx3
ABDOMINAL: Soft, non-distended, No TTP, rigidity, rebound or guarding
NG-Tube in place/Off-Suction since this morning
[2023-12-12] MEDS: KCL 270 MEQ IV (11:42)
--- NOTE | 2023-12-12 15:27 | CM ---
Initial assessment completed with pt and children at bedside.
Pt is a 73yr old female admitted with a Bowel Obstruction
Pt at baseline lives with her in a 2 level home with a basement. 3 steps to enter and a 2nd floor bedroom and full bath with a powder room on the first floor.
Pt is indep at baseline and drives.
No DME/SNF/VN history
PCP; Rolando Howell
Pharm; [facility]
PLAN; dc to home likely no needs. Check about possible VN needs
--- NOTE | 2023-12-12 15:40 | W.PN.GS2 ---
Today's Communication / Plan
-
clamp trial
Assessment / Plan
-
ASSESSMENT:
73 yo Female pt with relevant SHx of previous Cyst removal and fallopian tube ligation +30 years ago and a PMH of gastroparesis presenting to the ED with possible SBO VS Ileus.
PLAN:
NGT clamp trial
Ambulate
PRN antiemetics
DVT ppx
Subjective Data
-
Date of Service: December 12, 2023
AFVSS, denies n/v with NGT to suction, deneis abd pain, passed flatus and stool this am
Objective Data
-
Intake and Output
12/11/23 12/12/23 12/13/23
06:59 06:59 06:59
Intake Total 800 / 800 2800 / 2800
Output Total 200 / 200 100 / 100
Balance 600 / 600 2700 / 2700
Intake:
IV fluids (Total) 800 / 800 2400 / 2400
IV piggybacks 100 / 100
Amount instilled into GI Tube ( 300 / 300
Total)
[place] Sump 300 / 300
Output:
Gastrointestinal tube output ( 200 / 200 100 / 100
Total)
[place] Sump 200 / 200 100 / 100
Other:
Number of approximated SMALL 1
amounts of urine
Number of approximated MODERATE 2
amounts of urine
Number of unmeasured liquid
stools
Rectum 3
Vital Signs
Temp Pulse Resp BP Pulse Ox
99 F 110 16 157/94 96
12/12/23 11:05 12/12/23 11:42 12/12/23 11:05 12/12/23 11:42 12/12/23 11:05
Lab Results
12/12/23 09:38
12/12/23 09:38
Calcium 8.9 mg/dl (8.4-10.2) 12/12/23 09:38
Total Bilirubin 1.3 mg/dl (0.2-1.3) 12/12/23 09:38
AST 32 U/L (14-36) 12/12/23 09:38
ALT 16 U/L (0-35) 12/12/23 09:38
Alkaline Phosphatase 83 U/L (38-126) 12/12/23 09:38
Total Protein 6.1 g/dl (6.3-8.2) L 12/12/23 09:38
Albumin 3.9 g/dl (3.5-5.0) 12/12/23 09:38
Physical Exam
-
Gen: NAD
Abd: soft, nt, nd
--- NOTE | 2023-12-12 18:00 | PTCARENOTE ---
No residual present when aspirated- NG tube removed. Started on CLD.
--- NOTE | 2023-12-13 01:26 | VATNOTE ---
VAT paged to assess patient's left PIV as patient was reporting pain at site and site appeared red. Primary RN removed PIV, site appeared red. New PIV established in right arm and warm compress applied to old site. Primary RN notified, will continue
to monitor.
[2023-12-13 03:23] VITALS: BP 162/94
[2023-12-13] MEDS: NSS 1000 IV (05:06)
[2023-12-13] MEDS: LOPRESSOR 5 MG IV (05:43)
[2023-12-13 06:03] LABS: % Basophils 0.3 % (0-2); % Eosinophils 3.3 % (0-6); % Immature Granulocytes 0.7 % (0-0.5); % Lymphocytes 16.7 % (20.5-51.1); Absolute Eosinophils 0.2 10^3/uL (0-0.7); Absolute Monocytes 0.6 10^3/uL (0.1-0.6); Absolute Neutrophils 4.2 10^3/uL (1.4-6.5); Hematocrit 30.2 % (37.0-47.0); Hemoglobin 10.8 g/dL (12.0-16.0); Mean Corp Hgb Conc. 35.8 g/dL (33.0-37.0); Mean Corpuscular Hgb 30.5 pg (27.0-31.0); Mean Corpuscular Volume 85.3 fL (81.0-99.0); Mean Platelet Volume 9.1 fL (7.4-10.4); Nucleated Red Blood Cells % 0 %; Platelet Count 221 10^3/uL (130-400); Red Blood Cell Count 3.54 10^6/uL (4.20-5.40); Red Cell Dist. Width 13.2 % (11.5-14.5)
[2023-12-13 06:19] LABS: ALT (SGPT) 13 U/L (0-35); AST (SGOT) 28 U/L (14-36); Albumin 3.3 g/dl (3.5-5.0); Alkaline Phosphatase 69 U/L (38-126); Blood Urea Nitrogen 10 mg/dl (7-17); Carbon Dioxide 24 mmol/L (22-30); Chloride 108 mmol/L (98-107); Estimated Creatinine Clearance 64 ml/min; Glucose 91 mg/dl (70-99); Potassium 3.4 mmol/L (3.5-5.1); Sodium 136 mmol/L (135-145); Total Bilirubin 1.1 mg/dl (0.2-1.3); Total Protein 5.4 g/dl (6.3-8.2); eGFR > 60.00
[2023-12-13 07:17] VITALS: BP 156/98
[2023-12-13] MEDS: NSS (PRESERVATIVE FREE) 10 ML IV (08:47)
[2023-12-13] MEDS: PROTONIX IV 40 MG IV (08:47)
--- NOTE | 2023-12-13 09:15 | W.PN.HOSP.TC ---
Addendum entered and electronically signed by Bebeto Giron MD 12/14/23 07:50:
Total time spent on d/c = 31 min (on 12/13/23). This included today's physical exam, progress note, review of laboratory and diagnostic data, preparation of discharge documents and prescriptions, and discussions about the pt's hospital course and
discharge plan with the patient and other center medical and lab director involved in the patient's care.
Original Note:
Today's Communication/Plan
-
Possible discharge after dinner if patient tolerates low residue diet at that time.
Assessment / Plan
Assessment / Plan
Gen: NAD, awake and alert
Eyes: EOMI, PERRLA, no scleral icterus.
Neck: supple.
CV: Continues to remain RRR, +S1/S2, no m/r/g.
Resp: Remains CTAB, no rales, wheezes, or rhonchi.
Abd: Remains +BS, soft, NT to light palpation, ND
Skin: No rashes.
Neuro: CN 2-12 intact, non-focal.
Psych: Normal mood and affect.
CT A/P 12/10/23: Findings suggesting moderate developing small bowel obstruction versus small bowel ileus. Too small to characterize hypodense hepatic lesions likely small cysts or hemangiomas. Single large gallstone. Mild diverticulosis.
Abd Xray 12/11/23: Paucity of intestinal bowel gas. Bowel gas pattern nonobstructive.
Possible, developing SBO:
-surgery following
-had NGT to suction which has been removed
-Advanced to clears
-Stop IVFs
-note, h/o gastroparesis
Other problems:
Hypokalemia: PO K
GERD: cont PPI
h/o gallstones
h/o hiatal hernia
Essential HTN: restart PO BB
Multiple family members updated at bedside.
FULL/Lovenox
Anticipated Discharge: Within 24 hours
Subjective/Interval History
-
Date of Service: December 13, 2023
Patient tolerated clears yesterday evening and this morning. Had some mild nausea this morning. Overall feeling improved from yesterday.
Objective Data
-
Labs:
Laboratory Results
12/13/23
05:43
WBC 6.0
Hgb 10.8 L
Hct 30.2 L
Plt Count 221
Sodium 136
Potassium 3.4 L
Chloride 108 H
Carbon Dioxide 24
BUN 10
Creatinine 0.6
Glucose 91
Calcium 9.0
Total Bilirubin 1.1
AST 28
ALT 13
Alkaline Phosphatase 69
Vital Signs:
Vital Signs
Temp Pulse Resp BP Pulse Ox
98.1 F 80 16 156/98 96
12/13/23 07:17 12/13/23 07:17 12/13/23 07:17 12/13/23 07:17 12/13/23 07:17
I&O
12/12/23 12/13/23 12/14/23
06:59 06:59 06:59
Intake Total 2800 / 2800 2670 / 2670
Output Total 100 / 100 225 / 225
Balance 2700 / 2700 2445 / 2445
[2023-12-13] MEDS: KCL 40 MEQ PO (09:53)
[2023-12-13 11:16] VITALS: BP 153/103
--- NOTE | 2023-12-13 12:32 | W.PN.GS2 ---
Addendum entered and electronically signed by Sahil Pike MD 12/13/23 12:44:
I saw and examined the patient.
The Associate Doctor's note was reviewed and I agree with the note.
Comment: Improving. Denies n/v, passing flatus. Hungry. Exam benign. Plan to ADAT to LRD, [place] for DC when tolerates.
Original Note:
Today's Communication / Plan
-
Advance diet
Assessment / Plan
-
ASSESSMENT:
73 yo Female pt with relevant SHx of previous abdominal fibroids removal and fallopian tube ligation +30 years ago and gastroparesis who presented to the ED with possible SBOp VS Ileus.
AFVSS
NGT removed on 12/11 and tolerating clears with +flatus
PLAN:
Advance to full liquids diet and if tolerating well ok for LRD for dinner
Anticipate need for low residue diet to assist with gastric-emptying upon D/C
Clear for discharge from surgical standpoint once tolerating diet
Subjective Data
-
Date of Service: December 13, 2023
Patient seen and examined at bedside with Dr. Pike. Denies n/v. Tolerating liquids thus far without abdominal discomfort. Passing a lot of flatus. Family at bedside, questions addressed
Objective Data
-
Intake and Output
12/12/23 12/13/23 12/14/23
06:59 06:59 06:59
Intake Total 2800 / 2800 2670 / 2670
Output Total 100 / 100 225 / 225
Balance 2700 / 2700 2445 / 2445
Intake:
IV fluids (Total) 2400 / 2400 2400 / 2400
IV piggybacks 100 / 100 270 / 270
Amount instilled into GI Tube ( 300 / 300
Total)
[place] Sump 300 / 300
Output:
Gastrointestinal tube output ( 100 / 100 225 / 225
Total)
[place] Sump 100 / 100 225 / 225
Other:
Number of approximated SMALL 1
amounts of urine
Number of approximated MODERATE 2 2
amounts of urine
Number of unmeasured liquid
stools
Rectum 3
Vital Signs
Temp Pulse Resp BP Pulse Ox
98.2 F 92 16 153/103 96
12/13/23 11:16 12/13/23 11:16 12/13/23 11:16 12/13/23 11:16 12/13/23 11:16
Lab Results
12/13/23 05:43
12/13/23 05:43
Calcium 9.0 mg/dl (8.4-10.2) 12/13/23 05:43
Magnesium 2.0 mg/dl (1.6-2.3) 12/13/23 05:43
Total Bilirubin 1.1 mg/dl (0.2-1.3) 12/13/23 05:43
AST 28 U/L (14-36) 12/13/23 05:43
ALT 13 U/L (0-35) 12/13/23 05:43
Alkaline Phosphatase 69 U/L (38-126) 12/13/23 05:43
Total Protein 5.4 g/dl (6.3-8.2) L 12/13/23 05:43
Albumin 3.3 g/dl (3.5-5.0) L 12/13/23 05:43
Physical Exam
-
Gen: NAD
Abd: soft, nt, nd
[2023-12-13 15:11] VITALS: BP 152/96
[2023-12-13] MEDS: TOPROL XL 50 MG PO (17:22)
[2023-12-13] MEDS: TOPROL XL 25 MG PO (17:23)
== END 2023-12-13 17:51 | disposition home or self-care (01) | DRG 390 ==
LOC: 2 SOUTH 22:32
PROVIDERS: Clinical Nurse Specialist Family Health; Emergency Medicine; ADMITTING PHYSICIAN Hospitalist; ATTENDING PHYSICIAN Internal Medicine; CONSULT PHYSICIAN Surgery; EMERGENCY PHYSICIAN Emergency Medicine; FAMILY PHYSICIAN Family Medicine
PROC: 0D9670Z Drainage of Stomach with Drainage Device, Via Natural or Artificial Opening (ICD-10-PCS; 2023-12-10)
DX: K56.50 Intestinal adhesions [bands], unspecified as to partial versus complete obstruction (principal); K31.84 Gastroparesis; I10 Essential (primary) hypertension; K44.9 Diaphragmatic hernia without obstruction or gangrene; R10.13 Epigastric pain; E55.9 Vitamin D deficiency, unspecified; M81.0 Age-related osteoporosis without current pathological fracture; E78.5 Hyperlipidemia, unspecified; H35.3210 Exudative age-related macular degeneration, right eye, stage unspecified; E87.6 Hypokalemia; Z88.1 Allergy status to other antibiotic agents; Z88.0 Allergy status to penicillin; Z88.2 Allergy status to sulfonamides; Z88.8 Allergy status to other drugs, medicaments and biological substances; Z79.82 Long term (current) use of aspirin
CPT/HCPCS: 71045; 74018; 74177; 80053; 80061; 83690; 83735; 84484; 85025; 86803; 93005; 96361; 96374; 96375; 97161; 97165; 99285; Q9967

== ENCOUNTER → 2023-12-21 08:56 | Outpatient (REF) | payer OTHER, SELFPAY | LOC: RAD 08:56 | PROVIDERS: ATTENDING PHYSICIAN Surgery; FAMILY PHYSICIAN Family Medicine | DX: K21.9 Gastro-esophageal reflux disease without esophagitis (principal); K56.609 Unspecified intestinal obstruction, unspecified as to partial versus complete obstruction | CPT/HCPCS: 74246; 74248 ==

== ENCOUNTER → 2024-02-26 11:00 | Outpatient (REF) | payer OTHER, SELFPAY | LOC: MRI 3T 11:00 | PROVIDERS: ATTENDING PHYSICIAN Family Medicine | DX: R11.12 Projectile vomiting (principal); K59.00 Constipation, unspecified | CPT/HCPCS: 72197; 74183; A9575 ==

== ENCOUNTER → 2024-03-16 07:28 | Outpatient (REF) | payer OTHER, SELFPAY | LOC: RAD 07:28 | PROVIDERS: ATTENDING PHYSICIAN Family Medicine | DX: K80.00 Calculus of gallbladder with acute cholecystitis without obstruction (principal) | CPT/HCPCS: 78226; A9537 ==

== ENCOUNTER → 2024-05-13 07:40 | Outpatient (REF) | payer OTHER, SELFPAY | LOC: RAD 07:40 | PROVIDERS: ATTENDING PHYSICIAN Family Medicine | DX: M81.0 Age-related osteoporosis without current pathological fracture (principal) | CPT/HCPCS: 77080 ==

== ENCOUNTER → 2024-10-05 07:33 | Outpatient (REF) | payer OTHER, SELFPAY | LOC: WDC 07:33 | PROVIDERS: ATTENDING PHYSICIAN Physician Assistant Medical | DX: Z12.31 Encounter for screening mammogram for malignant neoplasm of breast (principal) | CPT/HCPCS: 77063; 77067 ==

== ENCOUNTER → 2025-04-24 11:17 | Outpatient (REF) | payer OTHER, SELFPAY | LOC: HWRAD 11:17 | PROVIDERS: ATTENDING PHYSICIAN Family Medicine | DX: R44.1 Visual hallucinations (principal) | CPT/HCPCS: 70450 ==